=== PATIENT | male | born 1985 | race African-American/Black ===

== ENCOUNTER 2016-09-28 22:26 | Emergency (ER) | payer OTHER ==
[~2016-09-28] VITALS: Ht 180.3 cm; Wt 79.4 kg
[2016-09-28 22:30] VITALS: BP_SYST 141
[2016-09-28 23:38] VITALS: BP_SYST 132
== END 2016-09-28 23:38 | disposition home or self-care (01) ==
LOC: SED 22:26
DX: S16.1XXA Strain of muscle, fascia and tendon at neck level, initial encounter (principal); R03.0 Elevated blood-pressure reading, without diagnosis of hypertension; V89.2XXA Person injured in unspecified motor-vehicle accident, traffic, initial encounter; Y93.89 Activity, other specified; Y92.488 Other paved roadways as the place of occurrence of the external cause; Y99.8 Other external cause status
CPT/HCPCS: 72050-TC; 99284